=== PATIENT | female | born 1945 | race African-American/Black ===

== ENCOUNTER 2017-05-27 10:11 | Day surgery (SDC) | payer MEDICARE, OTHER ==
[~2017-05-27] VITALS: Ht 172.7 cm; Wt 84.7 kg
[~2017-05-27 10:11] MED LIST: ALPR0.5T99 PO; CLON0.3T PO; CORE25TA PO; COUM5TAB PO; COZA100T PO; CYCL1PAK PO; DILA100C PO; DILA2TAB2 PO; ERGO50000 PO; FOLI1TAB PO; HYDR50TA15 PO; LABE300T PO; NEXI20CA PO; POTA-243 PO; PROC60TA PO; PROZ20CA11 PO; ROSU10 PO; VENTAER INH
[2017-05-27] MEDS ORDERED: WARF-23 PO (10:42)
[2017-05-27] MEDS ORDERED: FOLI800T PO (10:42)
[2017-05-27] MEDS ORDERED: PHEN100C PO (10:42)
[2017-05-27] MEDS ORDERED: MINO2.5T PO (10:42)
[2017-05-27] MEDS ORDERED: DOXA1TAB34 PO (10:42)
[2017-05-27] MEDS ORDERED: VITA2000 PO (10:42)
[2017-05-27] MEDS ORDERED: ALPR0.5T3 PO (10:42)
[2017-05-27] MEDS ORDERED: POTA-243 PO (10:42)
[2017-05-27] MEDS ORDERED: LABE200T2 PO (10:42)
[2017-05-27] MEDS ORDERED: FLUO20CA12 PO (10:42)
[2017-05-27] MEDS ORDERED: AMLO10 PO (10:42)
[2017-05-27] MEDS ORDERED: CLON0.3T PO (10:42)
[2017-05-27] MEDS ORDERED: HYDR-3801 PO (10:42)
[2017-05-27] MEDS ORDERED: TEMA30CA PO (10:42)
[2017-05-27] MEDS ORDERED: ZOCO20TA PO (10:42)
[2017-05-27] MEDS ORDERED: FERR325T72 PO (10:42)
[2017-05-27] MEDS ORDERED: LOSA100T PO (10:42)
[2017-05-27] MEDS ORDERED: TRIA37.5 PO (10:42)
[2017-05-27] MEDS ORDERED: VENTAER INH (10:42)
[2017-05-27 10:43] VITALS: BP 162/100; PULSE 53; RESP 16; TEMP 98.1; O2SAT 100
[2017-05-27] MEDS ORDERED: ASPIRIN 81 MG CHEW TAB PO SCH (11:00)
[2017-05-27 11:14] LABS: AUTOMATED NEUTROPHIL # 2.1 TH/MM3 (1.8-7.7); BASOPHIL % 1.3 % (0.0-2.0); EOSINOPHIL # 0.1 TH/MM3 (0-0.4); EOSINOPHIL % 4.2 % (0.0-4.0); HEMO FLAGS DIFF FINAL; LYMPHOCYTE # 0.8 TH/MM3 (1.0-4.8); MEAN CELL VOLUME 90.2 FL (80.0-100.0); MEAN CORPUSCULAR HEMOGLOBIN 29.6 PG (27.0-34.0); MEAN CORPUSCULAR HGB CONC 32.8 % (32.0-36.0); MONO % 9.2 % (0.0-8.0); NEUT % 62.3 % (16.0-70.0); PLATELET COUNT 144 TH/MM3 (150-450); RED BLOOD COUNT 3.88 MIL/MM3 (4.00-5.30); RED CELL DISTRIBUTION WIDTH 14.7 % (11.6-17.2); WHITE BLOOD COUNT 3.3 TH/MM3 (4.0-11.0)
[2017-05-27 11:22] LABS: PROTHROMBIN TIME - PATIENT 11.5 SEC (9.8-11.6)
[2017-05-27 11:31] LABS: BICARBONATE 20.8 MEQ/L (21.0-32.0); POTASSIUM 3.8 MEQ/L (3.5-5.1)
--- NOTE | 2017-05-28 11:52 | EKG ---
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 PREVIOUS TRACING : 11/08/2011 09.08 DOCTOR: Sudhakar Rucker Interpretating Date/Time 05/28/2017 11:51:03
== END 2017-05-27 12:00 | disposition home or self-care (01) ==
LOC: HDOC 10:11 → HDIC 10:12 → HDOC 12:00
PROVIDERS: ATTEND Internal Medicine Interventional Cardiology
DX: I25.10 Atherosclerotic heart disease of native coronary artery without angina pectoris (principal); I44.0 Atrioventricular block, first degree; Z53.8 Procedure and treatment not carried out for other reasons
CPT/HCPCS: 80048; 85025; 85610; 93005; G0463; 99211